=== PATIENT | female | born 1975 | race Caucasian/White ===

== ENCOUNTER 2016-12-29 18:27 | Emergency (ER) | payer MEDICARE, MEDICAID | END 2016-12-29 21:28 | disposition home or self-care (01) | LOC: D.ER 18:27 | DX: R51 Headache (principal) ==

== ENCOUNTER 2017-02-19 10:38 | Emergency (ER) | payer MEDICARE | END 2017-02-19 12:59 | disposition home or self-care (01) | LOC: D.ER 10:38 | DX: S16.1XXA Strain of muscle, fascia and tendon at neck level, initial encounter (principal); V43.52XA Car driver injured in collision with other type car in traffic accident, initial encounter; Y93.89 Activity, other specified; Y92.410 Unspecified street and highway as the place of occurrence of the external cause; F43.10 Post-traumatic stress disorder, unspecified; F17.200 Nicotine dependence, unspecified, uncomplicated; M54.9 Dorsalgia, unspecified ==

== ENCOUNTER 2017-07-11 23:43 | Emergency (ER) | payer MEDICARE | END 2017-07-12 02:08 | disposition home or self-care (01) | LOC: D.ER 23:43 | DX: N76.4 Abscess of vulva (principal); F17.200 Nicotine dependence, unspecified, uncomplicated ==

== ENCOUNTER 2017-08-02 15:55 | Emergency (ER) | payer MEDICARE ==
[2017-08-02 16:30] LABS: APPEARANCE CLEAR (CLEAR); BILIRUBIN NEGATIVE (NEGATIVE); COLOR YELLOW (YELLOW); GLUCOSE NEGATIVE (NEGATIVE); KETONE NEGATIVE (NEGATIVE); NITRITE NEGATIVE (NEGATIVE); PROTEIN NEGATIVE (NEGATIVE); UROBILINOGEN NORMAL (NORMAL)
[2017-08-02 16:38] LABS: UDS - AMPHET NEGATIVE QUAL (NEGATIVE); UDS - BARB NEGATIVE QUAL (NEGATIVE); UDS - BENZO POSITIVE QUAL (NEGATIVE); UDS - COCAINE NEGATIVE QUAL (NEGATIVE); UDS - OPIATE POSITIVE QUAL (NEGATIVE); UDS - PCP NEGATIVE QUAL (NEGATIVE); UDS - THC NEGATIVE QUAL (NEGATIVE)
[2017-08-02 17:08] LABS: BASOPHILS 0.3 % (0-2); EOSINOPHILS 1.6 % (0-7); HEMOGLOBIN 14.9 g/dL (12-16); IMMATURE GRANULOCYTES 0.1 % (0-5); LYMPHOCYTES 28.6 % (15-50); MCH 32.9 pg (26.0-34.0); MCHC 34.7 g/dL (31.0-37.0); MCV 94.9 fL (80.0-100.0); MEAN PLATELET VOLUME 12.4 fL (7.4-10.4); MONOCYTES 6.5 % (2-11); NEUTROPHILS 62.9 % (40-80); PLATELET COUNT 181 10x3/uL (130-400); RBC 4.53 10x6/uL (4.00-5.40); RDW 14.7 % (11.5-14.5); WBC 6.8 10x3/uL (4.8-10.8)
[2017-08-02 17:36] LABS: ALBUMIN 3.6 g/dL (3.4-5.0); ALKALINE PHOSPHATASE 82 U/L (46-116); ALT (SGPT) 22 U/L (10-68); BILIRUBIN - TOTAL 0.26 mg/dL (0.2-1.3); CALC OSMOLALITY 274 mosm/kg (275-300); CALCIUM 9.1 mg/dL (8.5-10.1); CARBON DIOXIDE 28.1 mmol/L (21.0-32.0); CHLORIDE - SERUM 104 mmol/L (98-107); CREATININE - SERUM 0.8 mg/dL (0.6-1.3); GLUCOSE 84 mg/dL (74-106); POTASSIUM - SERUM 3.7 mmol/L (3.5-5.1); PROTEIN - SERUM 6.6 g/dL (6.4-8.2); SODIUM 139 mmol/L (136-145); UREA NITROGEN 7 mg/dL (7-18); eGFR NON AFRICAN AMERICAN 84 mL/min (90-120)
== END 2017-08-02 19:45 | disposition home or self-care (01) ==
LOC: D.ER 15:55
PROVIDERS: Emergency Medicine
DX: R45.851 Suicidal ideations (principal); Y28.9XXA Contact with unspecified sharp object, undetermined intent, initial encounter; Y93.89 Activity, other specified; Y92.019 Unspecified place in single-family (private) house as the place of occurrence of the external cause; F17.200 Nicotine dependence, unspecified, uncomplicated; Z86.59 Personal history of other mental and behavioral disorders

== ENCOUNTER 2017-08-26 13:48 | Emergency (ER) | payer MEDICARE | END 2017-08-26 15:40 | disposition home or self-care (01) | LOC: D.ER 13:48 | DX: M25.511 Pain in right shoulder (principal); H66.92 Otitis media, unspecified, left ear; F17.200 Nicotine dependence, unspecified, uncomplicated ==

== ENCOUNTER 2017-09-07 18:20 | Emergency (ER) | payer MEDICARE | END 2017-09-07 21:40 | disposition left against medical advice (07) | LOC: D.ER 18:20 | DX: S29.9XXA Unspecified injury of thorax, initial encounter (principal); X58.XXXA Exposure to other specified factors, initial encounter; Y93.89 Activity, other specified; Y92.89 Other specified places as the place of occurrence of the external cause ==

== ENCOUNTER 2017-09-18 11:22 | Emergency (ER) | payer MEDICARE ==
--- NOTE | ~2017-09-18 | CN ---
PATIENT NAME:DIMITRIOS VERDUZCO MEDICAL RECORD: [id number] : 77 LOCATION:.ER ADMIT DATE: ACCOUNT: [id number] CONSULTING PHYSICIAN: JUANI CALHOUN MD REFERRING PHYSICIAN: SUZETTE ARCHER MD DATE OF CONSULTATION: 09/18/2017 CARDIOLOGY CONSULTATION DIAGNOSES: 1. Angina. 2. Hypertension. 3. Hyperlipidemia. 4. End-stage renal failure, on dialysis. 5. Coronary artery disease. Mrs. Verduzco is status post PTCA and stent in last January. She began having chest pain this week. She had chest pain especially with dialysis and heart rate variability not allowing them to complete her dialysis due to the high heart rate and the chest pain. This is the same pain she has had prior to the stenting in January. PHYSICAL EXAMINATION: GENERAL APPEARANCE: Well-nourished, well-developed, appears stated age. Level of distress, comfortable. PSYCHIATRIC: Mental status, alert, normal affect. Orientation, oriented to time, place and person. EYES: Lids and conjunctiva, noninjected. No discharge, no pallor. ENT: Lips, teeth, gums, normal dentition. Oropharynx, no cyanosis, no pallor. NECK: Carotid arteries, bilateral normal upstroke, no bruits, no thrills. JUGULAR VEINS: No jugular venous pressure or distention. CERVICAL LYMPH NODES: Nontender, nonenlarged. THYROID: Not enlarged. Nontender. No nodules. LUNGS: Respiratory effort, unlabored. CHEST: Normal curvature. No thoracic deformity. No chest wall tenderness. Percussion, resonant. Auscultation, clear. No wheezes, no rales, no rhonchi. CARDIOVASCULAR: Precordial exam, nondisplaced. No heaves or pericardial thrills. Rate and rhythm, regular. Heart sounds, normal S1, normal S2. No S3, no gallop, no rub. Systolic murmur, not heard. Diastolic murmur, not heard. EXTREMITIES: No cyanosis, no edema. Peripheral pulses, full and equal in all extremities, except as noted. No bruits appreciated. ABDOMEN: Soft, nondistended. Normal aorta. No bruit. Nontender. No masses. Liver, nontender, no hepatomegaly. Spleen, nontender, no splenomegaly. MUSCULOSKELETAL: No joint tenderness. No joint swelling. No erythema. NEUROLOGICAL: Normal gait, normal strength, normal tone. SKIN: Warm and dry. OVERALL IMPRESSION: Chest pain compatible with angina, relatively unstable fashion. We will proceed with coronary angiography. Further care depends on findings of the angiography. TRANSINT:[id number] Voice Confirmation ID: [id number] DOCUMENT ID: [id number] CONSULT REPORT [id number] DIMITRIOS VERDUZCO JEFFREY MD at 1153 CC: [id number] DICTATION DATE: 09/18/17 1539 [facility] SUPERVISOR: 09/18/17 1809 DEP ER 09/18/17 [facility] [address] [place] [address]
[2017-11-03] MEDS ORDERED: PROAIR HFA8.5 GM INH (12:05)
[2017-11-03] MEDS ORDERED: CLOTRIM ANTIFUN15 GM TOPICAL (12:05)
[2017-11-03] MEDS ORDERED: OXYCODONE HCL10 MG PO (12:06)
[2017-11-03] MEDS ORDERED: ROBAXIN-750750 MG PO (12:06)
[2017-11-03] MEDS ORDERED: ABILIFY10 MG PO (12:06)
[2017-11-03] MEDS ORDERED: TOFRANIL50 MG PO (12:07)
[2017-11-03] MEDS ORDERED: VALIUM10 MG PO (12:07)
[2017-11-03] MEDS ORDERED: BUSPAR 15 MG TA15 MG PO (12:07)
[2017-11-03] MEDS ORDERED: REMERON15 MG PO (12:07)
[2017-11-03] MEDS ORDERED: MAXALT5 MG PO (12:08)
[2017-11-06 08:53] VITALS: BMI 37.0
== END 2017-09-18 13:22 | disposition home or self-care (01) ==
LOC: D.ER 11:22
DX: M54.6 Pain in thoracic spine (principal)

== ENCOUNTER 2017-11-06 07:40 | Day surgery (SDC) | payer MEDICARE ==
[2017-11-03 13:06] LABS: HEMATOCRIT 42.9 % (36.0-48.0); HEMOGLOBIN 14.5 g/dL (12-16); MCH 31.7 pg (26.0-34.0); MCHC 33.8 g/dL (31.0-37.0); MCV 93.7 fL (80.0-100.0); MEAN PLATELET VOLUME 11.2 fL (7.4-10.4); RBC 4.58 10x6/uL (4.00-5.40); RDW 13.4 % (11.5-14.5); WBC 12.6 10x3/uL (4.8-10.8)
[~2017-11-06] VITALS: Ht 157.5 cm; Wt 91.8 kg
--- NOTE | ~2017-11-06 | OP ---
PATIENT NAME: DIMITRIOS HATFIELD MEDICAL RECORD: [id number] :77 LOCATION:D.[facility] ADMISSION DATE: SURGEON: LARRY MARQUEZ MD DATE OF OPERATION: 11/06/2017 PREOPERATIVE DIAGNOSIS: History of Bartholin's abscess. POSTOPERATIVE DIAGNOSIS: Bartholin's abscess drained. PROCEDURE: Marsupialization. SURGEON: Larry Marquez MD. ANESTHESIOLOGIST: Dr. Richardson ANESTHESIA: General. FINDINGS: A defect approximately 2 cm in length and 1 to 1.5 cm wide is encountered on the vulva. There is some discharge, but the entirety of the large open Bartholin cyst that was observed Monday in the clinic is no longer present. ESTIMATED BLOOD LOSS: Minimal. FLUIDS: 300 cc lactated Ringer's. URINE OUTPUT: Quantity sufficient void prior to the procedure. COMPLICATIONS: None. DRAINS: None. INDICATIONS: The patient is a 41-year-old female with history of Bartholin's abscess. The patient presents for marsupialization without it. DESCRIPTION OF PROCEDURE: After informed consent was assured, the patient was taken to the operating room where anesthetic was obtained and she was prepped and draped in usual sterile fashion. Examination reveals Bartholin's abscess has spontaneously ruptured with a large defect present on the vulva. Using a 4-0 Vicryl stitch the cyst wall was sewn to the vaginal mucosa from a 9 o'clock to the 3 o'clock position. Given the size of the defect, the patient will be instructed to observe Sitz baths b.i.d. to t.i.d. and will heal by secondary intent. The sponge, lap, and needle counts were correct times 2 at the close of this procedure. TRANSINT:[id number] Voice Confirmation ID: [id number] DOCUMENT ID: [id number] OPERATIVE REPORT [id number] DIMITRIOS HATFIELD LARRY MARQUEZ MD at 1648 CC: [id number] DICTATION DATE: 11/06/17 1113 TRANSPORTATION MODELER: 11/06/17 1242 [facility] 11/06/17 [id number] [place] [address]
[~2017-11-06 07:40] MED LIST: ABILIFY10 MG PO; BUSPAR 15 MG TA15 MG PO; CLOTRIM ANTIFUN15 GM TOPICAL; MAXALT5 MG PO; OXYCODONE HCL10 MG PO; PROAIR HFA8.5 GM INH; REMERON15 MG PO; ROBAXIN-750750 MG PO; TOFRANIL50 MG PO; VALIUM10 MG PO
[2017-11-06] MEDS ORDERED: HYDROCODON-ACE1 EAC7 PO (08:44)
[2017-11-06 08:53] VITALS: BP 100/58; Ht 157.5 cm; Wt 91.8 kg
== END 2017-11-06 12:58 | disposition home or self-care (01) ==
LOC: D.OPS 07:40 → D.PAN 10:00 → D.OPS 12:58
PROVIDERS: Anesthesiology
DX: N75.1 Abscess of Bartholin's gland (principal); F17.200 Nicotine dependence, unspecified, uncomplicated; E66.01 Morbid (severe) obesity due to excess calories

== ENCOUNTER 2018-04-16 11:54 | Emergency (ER) | payer MEDICARE, MEDICAID ==
[~2018-04-16] VITALS: Ht 157.5 cm; Wt 90.9 kg
[~2018-04-16 11:54] MED LIST changes: +HYDROCODON-ACE1 EAC7 PO
[2018-04-16 12:16] VITALS: BP 109/69; Ht 157.5 cm; Wt 90.9 kg
[2018-04-16] MEDS ORDERED: PERCOCET 5-3251 TAB PO (13:16)
[2018-04-16] MEDS ORDERED: ROBAXIN500 MG PO (13:16)
== END 2018-04-16 14:41 | disposition home or self-care (01) ==
LOC: D.ER 11:54
DX: M51.26 Other intervertebral disc displacement, lumbar region (principal); M54.30 Sciatica, unspecified side; J44.9 Chronic obstructive pulmonary disease, unspecified; F17.200 Nicotine dependence, unspecified, uncomplicated

== ENCOUNTER 2018-05-21 08:00 | Outpatient (CLI) | payer MEDICARE, MEDICAID ==
[2018-04-16 12:16] VITALS: BMI 36.6
[~2018-05-21 08:00] MED LIST changes: +PERCOCET 5-3251 TAB PO; +ROBAXIN500 MG PO
== END 2018-05-21 09:00 | disposition home or self-care (01) ==
LOC: D.MAMMO 08:00
DX: Z12.31 Encounter for screening mammogram for malignant neoplasm of breast (principal)

== ENCOUNTER 2018-12-29 20:48 | Emergency (ER) | payer MEDICARE, MEDICAID ==
[2018-12-29 20:53] VITALS: BMI 34.3
[2018-12-29] MEDS ORDERED: SYMBICORT 80-10.2 GM INH (20:55)
[2018-12-29] MEDS ORDERED: ADIPEX-P37.5 MG PO (20:55)
[2018-12-29] MEDS ORDERED: ALBUTEROL SULF8.5 GM (20:55)
--- NOTE | 2018-12-29 21:20 | NUR ---
DR SINGH NOTIFIED AND REVIEWED PT'S BEHAVIOR AND ASSESSMENT RESULTS. PT IS A LOW RISK PER DR DR SINGH, DR SINGH STATED TO GIVE RESOURCES TO PT AT TIME OF DISCHARGE, NO FURTHER ORDERS AT THIS, RESOURCES REVIEWED WITH PT AND SHE VERBALIZED UNDERSTANDING.
[2018-12-29] MEDS ORDERED: ULTRAM50 MG PO (22:14)
[2018-12-29 22:47] VITALS: BP 107/67
[2019-01-02] MEDS ORDERED: SYMBICORT 16010.2 GM INH (16:02)
[2019-01-02] MEDS ORDERED: TYLENOL W/CODEI1 TAB PO (16:04)
[2019-04-18] MEDS ORDERED: HYDROCODON-ACE1 EAC7 PO (14:56)
[2019-04-18] MEDS ORDERED: SYMBICORT 80-10.2 GM INH (14:57)
[2019-04-18] MEDS ORDERED: ACETAMINOPHEN500 M1 PO (14:59)
== END 2018-12-29 22:47 | disposition home or self-care (01) ==
LOC: D.ER 20:48
DX: S62.201A Unspecified fracture of first metacarpal bone, right hand, initial encounter for closed fracture (principal); W50.0XXA Accidental hit or strike by another person, initial encounter; Y93.89 Activity, other specified; Y92.89 Other specified places as the place of occurrence of the external cause

== ENCOUNTER 2019-01-03 07:53 | Day surgery (SDC) | payer MEDICARE, MEDICAID ==
[~2019-01-03] VITALS: Ht 157.5 cm; Wt 84.8 kg
[~2019-01-03 07:53] MED LIST changes: +ADIPEX-P37.5 MG PO; +ALBUTEROL SULF8.5 GM; +SYMBICORT 16010.2 GM INH; +SYMBICORT 80-10.2 GM INH; +TYLENOL W/CODEI1 TAB PO; +ULTRAM50 MG PO
[2019-01-03 08:19] LABS: HEMATOCRIT 43.3 % (36.0-48.0); HEMOGLOBIN 14.8 g/dL (12-16); MCH 31.6 pg (26.0-34.0); MCHC 34.2 g/dL (31.0-37.0); MCV 92.5 fL (80.0-100.0); MEAN PLATELET VOLUME 11.1 fL (7.4-10.4); RBC 4.68 10x6/uL (4.00-5.40); RDW 14.3 % (11.5-14.5); WBC 19.4 10x3/uL (4.8-10.8)
[2019-01-03] MEDS ORDERED: ZOFRAN ODT4 MG/UDTAB PO (09:02)
[2019-01-03] MEDS ORDERED: ROBAXIN500 MG PO (09:03)
[2019-01-03 09:06] VITALS: BP 101/52; Ht 157.5 cm; Wt 84.8 kg
--- NOTE | 2019-01-03 09:21 | NUR ---
PATIENT SEEN IN ER MONDAY NIGHT. BEHAVIORAL CONSULT DONE AND CLEARED.
[2019-01-03] MEDS ORDERED: HYDROCODON-ACE1 EA10 PO (11:33)
--- NOTE | 2019-01-03 13:08 | NUR ---
DISCHARGE INSTRUCTIONS REVIEWED WITH PATIENT, DISCHARGED HOME VIA WHEELCHAIR TO PRIVATE VEHICLE WITH SPOUSE
--- NOTE | 2019-01-08 15:00 | OP ---
PATIENT NAME: DIMITRIOS HATFIELD MEDICAL RECORD: [id number] :77 LOCATION:[facility] ADMISSION DATE: SURGEON: DIANA BRENNER MD DATE OF OPERATION: 01/03/2019 PREOPERATIVE DIAGNOSIS: Boxer's fracture, right index finger. POSTOPERATIVE DIAGNOSIS: Boxer's fracture, right index finger. PROCEDURE: Closed reduction percutaneous pinning of right index finger fracture. SURGEON: Diana Brenner MD ANESTHESIA: General. INTRAOPERATIVE COMPLICATIONS: None. SUMMARY OF PATHOLOGIC FINDINGS: The patient had a knuckle and palm displacement. This was reduced anatomically and cross pinned with 0.045 K-wires under direct fluoroscopy. OPERATIVE SUMMARY IN DETAIL: After obtaining the appropriate preoperative orthopedic surgery consent as well as anesthetic consultation, evaluation and clearance, the patient was brought to the operating room and placed on the operating table in position. After adequate general laryngeal mask airway was administered, tourniquet was placed on proximal aspect of the right upper extremity. Right upper extremity was then prepped and draped in routine sterile fashion. At this point, the appropriate timeout was done and agreed upon by all. Upper extremity was elevated and exsanguinated, tourniquet was inflated to 250 mmHg. Reduction maneuver was performed under fluoroscopy. Reduction was held anatomically. An 0.045 cross pinning was done across the distal aspect of the metacarpal into the more proximal aspect of the metacarpal resulting in anatomic religion. Radiographs were taken for final evaluation for radiology in both AP, lateral and oblique planes. Pins were repaired by bending and placing Jurgan balls. Sterile dressings were applied. Volar splint was applied. The patient was awakened and taken to recovery room in stable condition. All final needle and sponge counts were correct. TRANSINT:[id number] Voice Confirmation ID: [id number] DOCUMENT ID: [id number] DIANA BRENNER MD at 1500 CC: [id number] DICTATION DATE: 01/08/19923 [employer] ORGANIZER: 01/08/19 1155 [facility] 01/03/19 [id number] [place] [address]
== END 2019-01-03 13:08 | disposition home or self-care (01) ==
LOC: D.OPS 07:53
PROVIDERS: Anesthesiology; ATTEND Orthopaedic Surgery
DX: S62.600A Fracture of unspecified phalanx of right index finger, initial encounter for closed fracture (principal); X58.XXXA Exposure to other specified factors, initial encounter

== ENCOUNTER → 2019-03-12 13:11 | Outpatient (CLI) | payer MEDICARE, MEDICAID ==
[2019-01-03 09:06] VITALS: BMI 34.3
[~2019-03-12 13:11] MED LIST changes: +ACETAMINOPHEN500 M1 PO; +HYDROCODON-ACE1 EA10 PO; +ZOFRAN ODT4 MG/UDTAB PO
== END | disposition home or self-care (01) ==
LOC: D.CT 13:11
PROVIDERS: ATTEND Family Medicine
DX: R91.8 Other nonspecific abnormal finding of lung field (principal)

== ENCOUNTER 2019-04-19 10:55 | Day surgery (SDC) | payer MEDICARE, MEDICAID ==
[~2019-04-19] VITALS: Ht 157.5 cm; Wt 81.6 kg
--- NOTE | ~2019-04-19 | OP ---
PATIENT NAME: DIMITRIOS HATFIELD MEDICAL RECORD: [id number] :77 LOCATION:D.[facility] ADMISSION DATE: SURGEON: WLILI BRUNSON MD DATE OF OPERATION: 04/19/2019 PREOPERATIVE DIAGNOSES: 1. Gallstones. 2. Tobacco dependent syndrome. POSTOPERATIVE DIAGNOSES: 1. Gallstones. 2. Tobacco dependent syndrome. PROCEDURE: Laparoscopic cholecystectomy. SURGEON: Willi Brunson MD REPORT OF PROCEDURE: The patient's abdomen was prepped and draped in sterile fashion. A skin incision was made just above the umbilicus. Electrocautery was used to dissect through subcutaneous tissues, 0 Vicryls were placed on the fascia bilaterally and the fascia was incised with a 15-blade. I then bluntly entered the peritoneal cavity and placed a 12-mm Hans port. Under direct visualization, a 5 mm trocar was placed in the epigastrium and 2 more 5-mm trocars were placed in the right subcostal region. The gallbladder was grasped and elevated. There was no sign of any inflammatory changes. The cystic artery and cystic duct were dissected free and these were clipped proximally and distally and ligated in standard fashion. The gallbladder was taken off the liver bed using electrocautery and placed in the right upper quadrant. Any bleeding from the liver bed was then treated with electrocautery. At this point, the ports and insufflation were then removed and the gallbladder was taken out through the umbilicus. The umbilical fascia was closed with interrupted 0-Vicryls times 3. The wounds were then irrigated out with normal saline, infused with 10 mL of 0.25% Marcaine with epinephrine. The skin incisions were all closed with subcutaneous 5-0 Monocryl and dressed appropriately. COMPLICATIONS: None. CONDITION: Stable. ANESTHESIA: General endotracheal and local. BLOOD LOSS: Minimal. TRANSINT:[id number] Voice Confirmation ID: [id number] DOCUMENT ID: [id number] OPERATIVE REPORT [id number] LIUWILLI BEY MD CC: JOSE RAMON HOFF DO [id number] DICTATION DATE: 04/19/19 1500 [employer] ENGINE ASSEMBLER: 04/20/19 0119 [facility] 04/19/19 [place] [address]
[2019-04-19 11:41] LABS: BASOPHILS 0.3 % (0-2); EOSINOPHILS 2.1 % (0-7); HEMATOCRIT 44.6 % (36.0-48.0); HEMOGLOBIN 15.5 g/dL (12-16); IMMATURE GRANULOCYTES 0.3 % (0-5); LYMPHOCYTES 33.2 % (15-50); MCH 32.6 pg (26.0-34.0); MCHC 34.8 g/dL (31.0-37.0); MCV 93.7 fL (80.0-100.0); MEAN PLATELET VOLUME 11.3 fL (7.4-10.4); MONOCYTES 6.9 % (2-11); NEUTROPHILS 57.2 % (40-80); PLATELET COUNT 208 10x3/uL (130-400); RBC 4.76 10x6/uL (4.00-5.40); RDW 13.9 % (11.5-14.5); WBC 6.1 10x3/uL (4.8-10.8)
[2019-04-19 11:51] LABS: CALC OSMOLALITY 272 mosm/kg (275-300); CALCIUM 8.9 mg/dL (8.5-10.1); CARBON DIOXIDE 30.5 mmol/L (21.0-32.0); CHLORIDE - SERUM 104 mmol/L (98-107); CREATININE - SERUM 0.7 mg/dL (0.6-1.3); GLUCOSE 85 mg/dL (74-106); POTASSIUM - SERUM 4.2 mmol/L (3.5-5.1); SODIUM 138 mmol/L (136-145); UREA NITROGEN 7 mg/dL (7-18); eGFR NON AFRICAN AMERICAN > 90 mL/min (90-120)
[2019-04-19 12:51] VITALS: BP 111/63; Ht 157.5 cm; Wt 81.6 kg
--- NOTE | 2019-04-19 13:17 | NUR ---
1250 PT ANSWERED YES TO MAKING A SUICIDE ATTEMPT 10 YEARS AGO. [employer] ASSOCIATE NOTIFIED FOR PSYCH CONSULT.
[2019-04-19] MEDS ORDERED: HYDROCODON-ACE1 EA10 PO (14:58)
--- NOTE | 2019-04-19 15:02 | NUR ---
DR. SINGH NOTIFIED AND REVIEWED PT'S BEHAVIOR AND ASSESSMENT RESULTS. PT IS A LOW RISK PER DR. SINGH. DR. SINGH STATED TO GIVE RESOURCES TO PT AT TIME OF DISCHARGE. NO FURTHER ORDERS AT THIS TIME. RESOUCRES REVIEWED WITH PT AND SHE VERBALIZIED UNDERSTANDING.
--- NOTE | 2019-04-19 17:05 | NUR ---
PATIENT DRESSED IN PERSONAL CLOTHING, DISCHARGE INSTRUCTIONS REVIEWED WITH PATIENT AND SPOUSE, PATIENT DISCHARGED HOME VIA WHEELCHAIR TO PRIVATE VEHICLE WITH SPOUSE
== END 2019-04-19 17:05 | disposition home or self-care (01) ==
LOC: D.OPS 10:55 → D.PAN 13:00 → D.OPS 17:05
PROVIDERS: ATTEND Surgery
DX: K80.80 Other cholelithiasis without obstruction (principal); F17.200 Nicotine dependence, unspecified, uncomplicated